=== PATIENT | female | born 1945 | race African-American/Black ===

== ENCOUNTER 2023-10-12 13:01 | Emergency (ER) | payer MEDICARE ==
[2023-10-12] MEDS ORDERED: Ibuprofen 800 MG TAB ONE (13:43)
== END 2023-10-12 13:58 | disposition home or self-care (01) ==
LOC: MADERS 13:01
DX: S13.9XXA Sprain of joints and ligaments of unspecified parts of neck, initial encounter (principal); V89.2XXA Person injured in unspecified motor-vehicle accident, traffic, initial encounter
CPT/HCPCS: 70450; 72125